=== PATIENT | female | born 1955 | race Caucasian/White ===

== ENCOUNTER 2018-11-14 10:59 | Emergency (ER) | payer SELFPAY ==
[~2018-11-14] VITALS: Ht 154.9 cm; Wt 68.0 kg
[2018-11-14] MEDS ORDERED: ENALAPRIL 2.5MG/2ML VIAL 2ML IV ONE (14:45)
[2018-11-14 17:00] VITALS: BP 165/75
== END 2018-11-14 17:39 | disposition home or self-care (01) ==
LOC: ER 11:12 → EDBD 11:12 → ER 17:39
DX: I10 Essential (primary) hypertension (principal); E11.65 Type 2 diabetes mellitus with hyperglycemia; E78.5 Hyperlipidemia, unspecified; Z90.49 Acquired absence of other specified parts of digestive tract; Z98.890 Other specified postprocedural states
CPT/HCPCS: 36415; 80048; 82962; 96374; 99283; J3490